=== PATIENT | female | born 1965 | race Caucasian/White ===

== ENCOUNTER → 2018-12-31 | Outpatient (CLI) | payer BC ==
--- NOTE | 2019-01-02 11:15 | MM ---
Reason for exam: screening (asymptomatic). Last mammogram was performed 8 years and 4 months ago. History: Patient is postmenopausal and is nulliparous. Physical Findings: A clinical breast exam by your physician is recommended on an annual basis and results should be correlated with mammographic findings. MG Screening Mammo w CAD Bilateral CC and MLO view(s) were taken. Prior study comparison: August 19, 2010, right breast mammogram dig work up. August 17, 2010, bilateral digital screening mammogram. The breast tissue is extremely dense which could obscure a lesion on mammography. No significant changes when compared with prior studies. ASSESSMENT: Benign, BI-RAD 2 RECOMMENDATION: Routine screening mammogram of both breasts in 1 year.
== END ==
LOC: RADMAMWWP 16:14
PROVIDERS: ATTEND Family Medicine
DX: Z12.31 Encounter for screening mammogram for malignant neoplasm of breast (principal)
CPT/HCPCS: 77067

== ENCOUNTER → 2019-01-03 | Outpatient (CLI) | payer BC ==
--- NOTE | 2019-01-03 15:49 | CT ---
EXAMINATION TYPE: CT abdomen wo con DATE OF EXAM: 01/03/2019 COMPARISON: 11/17/2014 INDICATION: epigastric to supraumbilical pain. DLP: 130.4 mGycm, Automated exposure control for dose reduction was used. CONTRAST: 0 mL of Isovue 300. Study performed without Oral Contrast TECHNIQUE: Axial images were obtained from above the diaphragm to the pubic rami in the axial plane a t 5 mm thick sections. Reconstructed images are reviewed on the computer in the coronal plane. FINDINGS: Limited CT sections are obtained the lung bases. The lung bases are clear. CT ABDOMEN: Liver: Normal Spleen: Normal Pancreas: Normal Adrenal glands: The adrenal glands are normal. Gallbladder: Normal Kidneys: No masses are evident. No hydronephrosis is present. No cysts are present. There are frances ral nonobstructing renal stones present. On the left this is in the mid medial kidney measuring 0.3 c m on the right facets at the superior pole medial aspect measuring 0.3 cm within the lateral midpole measuring 0.2 cm and in the posterior mid pole slightly inferior measuring 0.2 cm. Aorta: Vascular calcification is within the aorta. Inferior vena cava: Normal. Loops of bowel within the abdomen are normal. There are loops of bowel which are incompletely dis tended or lack oral contrast limiting their evaluation. IMPRESSIONS: 1. 1. Nonobstructing bilateral renal stones.
== END | disposition home or self-care (01) ==
LOC: RADCTMAIN 07:31
PROVIDERS: ATTEND Family Medicine
DX: N20.0 Calculus of kidney (principal); R19.07 Generalized intra-abdominal and pelvic swelling, mass and lump
CPT/HCPCS: 74150

== ENCOUNTER 2019-05-15 16:28 | Emergency (ER) | payer BC ==
[2019-05-15 16:36] VITALS: TEMP 98
--- NOTE | 2019-05-15 17:15 | XR ---
EXAMINATION TYPE: XR soft tissue neck DATE OF EXAM: 05/15/2019 COMPARISON: NONE HISTORY: Swallowed a toothpick. TECHNIQUE: 2 views FINDINGS: Epiglottis appears normal. Subglottic trachea appears normal. I see no sign of radiopaque f oreign body. Tonsils and adenoids appear normal. IMPRESSION: Negative exam. No evidence of a radiopaque foreign body. Wooden toothpick is probably not visible on plain x-ray.
--- NOTE | 2019-05-15 18:42 | CT ---
EXAMINATION TYPE: CT neck chest without con DATE OF EXAM: 05/15/2019 COMPARISON: None HISTORY: Toothpick stuck in throat. CT DLP: 400.3 mGycm Automated exposure control for dose reduction was used. FINDINGS: Multiple axial sections were obtained from the frontal sinuses to the diaphragm without contrast. IMPRESSION: THERE IS NO EVIDENCE OF MEDIASTINAL ADENOPATHY. THYROID GLAND IS SYMMETRIC. THERE IS SMALL AMOUNT OF AIR IN THE UPPER THORACIC ESOPHAGUS. I SEE NO EVIDENCE OF ESOPHAGEAL FOREIGN BODY. EPIGLOTTIS APPEARS NORMAL. THE LUNGS ARE CLEAR OF INFILTRATE. THERE IS NO EVIDENCE OF A PULMONARY MASS. THERE IS NO PLEURAL EFFU TONY. THERE ARE NO HILAR MASSES. HEART SIZE IS NORMAL. THERE IS NO PNEUMOTHORAX. THERE IS SOME SPONDY LOTIC CHANGES IN THE LOWER LOWER CERVICAL SPINE WITH DISC SPACE NARROWING AT C5-6 C6-7 AND SPUR FORMA TION. TONSILS AND ADENOIDS APPEAR NORMAL. THERE IS NO EVIDENCE OF PHARYNGEAL MASS. I SEE NO SOFT TISSUE AIR . IMPRESSION: NEGATIVE CT SCAN OF THE CERVICAL SOFT TISSUES. NEGATIVE CT SCAN OF THE CHEST. NO EVIDENCE OF A RADIOP AQUE FOREIGN BODY.
--- NOTE | 2019-05-15 18:55 | ED ---
General Adult HPI - General Chief complaint: ENT Stated complaint: Toothpick in throat Time Seen by Provider: 05/15/19 16:34 Source: patient Mode of arrival: ambulatory Limitations: no limitations - History of Present Illness Initial comments: 54-year-old female patient presented to the emergency department today for evaluation of sore throat with possible foreign body. Patient states that she was chewing on a toothpick when she accidentally swallowed one of the fragments. Patient states she can feel it stuck in her throat. States she is having di scomfort on the left side and to hurts to swallow. She describes the pain as an "irritation". She denies any shortness of breath or difficulty swallowing. Denies any fever or chills. Denies any chest or abdominal pain. Patient states she was at her primary care physician's office today, they did take an x-ray and visualized the foreign body on x-ray. - Related Data Home Medications Medication Instructions Recorded Confirmed Ergocalciferol [Vitamin D2 50,000 units PO RIVAS 11/18/14 05/15/19 (DRISDOL)] Gabapentin [Neurontin] 600 mg PO BID 05/15/19 05/15/19 Naproxen 500 mg PO BID 05/15/19 05/15/19 valACYclovir [Valtrex] 500 mg PO DAILY 05/15/19 05/15/19 Previous Rx's Medication Instructions Recorded Cephalexin [Keflex] 500 mg PO BID #20 cap 05/15/19 Allergies Allergy/AdvReac Type Severity Reaction Status Date / Time latex Allergy Mild Rash/Hives Verified 05/15/19 22:08 Review of Systems ROS Statement: Those systems with pertinent positive or pertinent negative responses have been documented in the HPI. ROS Other: All systems not noted in ROS Statement are negative. Past Medical History Past Medical History: Musculoskeletal Disorder Additional Past Medical History / Comment(s): BACK PROB, HERNIATED DISCS IN NECK AND LOWER BACK. History of Any Multi-Drug Resistant Organisms: None Reported Past Surgical History: Appendectomy, Orthopedic Surgery, Uterine Ablation Additional Past Surgical History / Comment(s): Two foot surgerys right (1992, 2011,2012) Past Anesthesia/Blood Transfusion Reactions: Postoperative Nausea & Vomiting (PONV) Additional Past Anesthesia/Blood Transfusion Reaction / Comment(s): Slight nausea Past Psychological History: Anxiety Smoking Status: Never smoker Past Alcohol Use History: Occasional Past Drug Use History: Marijuana - Past Family History Mother Additional Family Medical History / Comment(s): Throat and liver CA Father Family Medical History: Cancer Additional Family Medical History / Comment(s): Colon CA post 50 y/o General Exam Limitations: no limitations General appearance: alert, in no apparent distress, other (This is a well- developed, well-nourished adult female patient in no acute distress. Vital signs upon presentation are temperature 98.0F, pulse 85, respirations 18, blood pressure 121/84, pulse ox 99% on room air.) ENT exam: Present: normal exam, normal oropharynx, mucous membranes moist Respiratory exam: Present: normal lung sounds bilaterally. Absent: respiratory distress, wheezes, rales, rhonchi, stridor Cardiovascular Exam: Present: regular rate, normal rhythm, normal heart sounds. Absent: systolic murmur, diastolic murmur, rubs, gallop, clicks GI/Abdominal exam: Present: soft, normal bowel sounds. Absent: distended, tenderness, guarding, rebound, rigid Neurological exam: Present: alert, oriented X3, CN II-XII intact Psychiatric exam: Present: normal affect, normal mood Skin exam: Present: warm, dry, intact, normal color. Absent: rash Course Vital Signs 05/15/19 05/15/19 16:33 21:13 Temperature 98.0 F Pulse Rate 85 66 Respiratory 18 16 Rate Blood Pressure 121/84 127/65 O2 Sat by Pulse 99 98 Oximetry Medical Decision Making - Medical Decision Making 54-year-old female patient percents into to the emergency department today for evaluation of possible foreign body to the throat. Patient reports swelling of fragment of tooth pick which she feels is stuck in her throat due to irritation she feels a swelling on the left side. Physical examination is unremarkable. She has no abdominal tenderness. We did consult GI Dr. Frausto who states this wound be better managed by ENT. We paged ENT several times without response. Given no findings of foreign body on CT scan I did discuss likelihood of abrasion to the pharynx as a cause for her symptoms rather than retained foreign body. I did inform patient that I could not be absolutely certain of this wi thout direct visualization. I did offer to have patient remain in the ED while awaiting ENT call back. We also offered discharge to follow up in the morning with ENT specialist. Patient opted to go home. She is in no distress. Swallowing without difficulty and reporting minimal pain. V/S are stable. I offered medication to alleviate symptoms, patient declined. She is discharged with follow up information. She is instructed to follow up with her primary care physician for recheck in 1-2 days. Return parameters are discussed in detail. She verbalizes understanding and agrees with this plan. After discharge Dr. Smallwood, ENT specialist did call back. Patient case and all findings including CT results were discussed. He agrees that it is unlikely that the foreign body is retained. He also stated that even if retained there is low likelihood of complication of the small fragment of toothpick. He recommended antibiotics in the form of Keflex. He also recommended soft diet for the next 4- 5 days. I did call and discuss this plan with the patient. Antibiotics were sent to the pharmacy of her choice. We again discussed return parameters in detail and follow up with her physician. She verbalizes understanding and agreed with this plan. - Radiology Data Radiology results: report reviewed, image reviewed CT neck and chest without contrast were obtained. Report was reviewed in its entirety. Impression by Dr. Retana shows negative computed tomography scan of the cervical soft tissues. Negative computed tomography scan of the chest. No evidence of a radiopaque foreign body. Two-view x-ray of the soft tissue neck was obtained. Report was reviewed in its entirety. Impression by Dr. Crawford shows negative exam. No evidence of a radiopaque foreign body. Wood toothpick is probably not visible on plain x-ray. Disposition Clinical Impression: Foreign body in throat Disposition: HOME SELF-CARE Condition: Good Instructions (If sedation given, give patient instructions): Foreign Body in Pharynx (ED) Additional Instructions: Follow-up with ENT specialist tomorrow. If unable to get in and experiencing symptoms return to the emergency department for further evaluation. Return to the emergency department for any other new, worsening, or concerning symptoms. Prescriptions: Cephalexin [Keflex] 500 mg PO BID #20 cap Is patient prescribed a controlled substance at d/c from ED?: No Referrals: Ruth Serna DO [Primary Care Provider] - 1-2 days Jamal Smallwood MD [STAFF PHYSICIAN] - 1-2 days Forest Prado DO [Doctor of Osteopathic Medicine] - 1-2 days Kentrell Valerio MD [STAFF PHYSICIAN] - 1-2 days Time of Disposition: 22:39
[2019-05-15 21:15] VITALS: BP 127/65; PULSE 66; RESP 16
== END 2019-05-15 22:43 | disposition home or self-care (01) ==
LOC: EC 16:28
DX: T17.208A Unspecified foreign body in pharynx causing other injury, initial encounter (principal); Z79.899 Other long term (current) drug therapy; Z91.040 Latex allergy status
CPT/HCPCS: 70360; 70490; 71250; 99284

== ENCOUNTER → 2019-07-05 | Outpatient (CLI) | payer BC ==
--- NOTE | 2019-07-05 18:11 | XR ---
EXAMINATION TYPE: XR sternum DATE OF EXAM: 07/05/2019 COMPARISON: NONE HISTORY: Lump at the lower sternum TECHNIQUE: 2 views FINDINGS: Sternal segments have normal alignment. There is no evidence of retrosternal mass. I see no fracture. IMPRESSION: Normal sternum exam.
--- NOTE | 2019-07-05 18:12 | XR ---
EXAMINATION TYPE: XR ribs RT DATE OF EXAM: 07/05/2019 COMPARISON: NONE HISTORY: Lump on the sternum TECHNIQUE: 2 views FINDINGS: 2 views of the right ribs were obtained and show no pleural effusion or pneumothorax. Right ribs appear intact. Right lung is clear of infiltrate. IMPRESSION: Negative right rib exam.
--- NOTE | 2019-07-05 18:13 | XR ---
EXAMINATION TYPE: XR thoracic spine 2V DATE OF EXAM: 07/05/2019 COMPARISON: NONE HISTORY: Lump on the sternum TECHNIQUE: 3 views FINDINGS: Thoracic vertebra have fairly normal spacing and alignment. There is a very slight midthora cic dextroscoliosis. Posterior elements are intact. There is narrowing of C5-6 and C6-7 disc spaces. There is no thoracic paraspinal mass. Posterior elements are intact. IMPRESSION: Mild degenerative changes as above. Minimal dextroscoliosis. No fracture seen.
== END | disposition home or self-care (01) ==
LOC: RADXRMAIN 09:31
PROVIDERS: ATTEND Family Medicine
DX: M48.02 Spinal stenosis, cervical region (principal); M43.02 Spondylolysis, cervical region
CPT/HCPCS: 71120; 72070

== ENCOUNTER → 2020-12-07 | Outpatient (CLI) | payer BC | END | disposition home or self-care (01) | LOC: LABWHC1 16:46 | PROVIDERS: ATTEND Emergency Medicine | DX: Z20.822 Contact with and (suspected) exposure to COVID-19 (principal) | CPT/HCPCS: U0003; C9803; U0005 ==

== ENCOUNTER 2024-02-20 08:06 | Day surgery (SDC) | payer BC ==
[2024-02-20 08:38] VITALS: TEMP 97.6
[2024-02-20] MEDS: LIDOCAINE 1% (10MG/ML) FOR IV START INTRADERMA PRN (08:41)
[2024-02-20] MEDS: LACTATED RINGERS 1,000 ML IV SCH (08:42)
[2024-02-20] MEDS: IV FLUID CONTINUATION 1,000 ML IV ONE (08:42)
[2024-02-20] MEDS ORDERED: PROPOFOL 10 MG/ML 20 ML VIAL IV ONE (08:53)
[2024-02-20] MEDS ORDERED: LIDOCAINE 1% INJ 10MG/ML (20 ML MDV) ONE (08:53)
--- NOTE | 2024-02-20 09:20 | P.PCN ---
Date of Procedure: 02/20/24 Description of Procedure: PREOPERATIVE DIAGNOSIS: Gastroesophageal reflux disease. POSTOPERATIVE DIAGNOSIS: Acute gastric ulcer with bleeding Diaphragmatic hiatal hernia OPERATION: Esophagogastroduodenoscopy with biopsies along esophagus, antrum and duodenum SURGEON: Peggy Dickens MD ANESTHESIA: MAC. INDICATIONS: The patient is a 59-year-old female who presents with reflux disease. Benefits and risks of the procedure were described. Informed consent was obtained. DESCRIPTION: The patient was brought into the endoscopy suite and laid in the left lateral decubitus position. An Olympus gastroscope was passed along the posterior oropharynx down to the distal esophagus where the squamocolumnar junction was encountered at 40 cm from the incisors. The stomach was entered and no bile reflux was found. Additional findings are listed below. Biopsies with cold forceps were obtained of the antrum. The first through third portion of the duodenum was examined. Retroflexion of the scope confirmed Hill grade 2 lower esophageal valve. The squamocolumnar junction demonstrated LA grade B erosive esophagitis. The stomach was desufflated. The patient tolerated the procedure well. FINDINGS: Squamocolumnar junction 40 cm from the incisors. Diaphragmatic hiatus at 41 cm. Hiatal hernia, 1 cm Hill grade 2 lower esophageal valve. LA grade B erosive esophagitis. Biopsies obtained Biopsies obtained of the duodenum. Chronic gastritis with biopsies obtained. Acute gastric ulcers with bleeding along gastric cardia RECOMMENDATIONS: Omeprazole 40 mg daily for 2 weeks Carafate 1 g twice daily for 2 weeks
--- NOTE | 2024-02-20 09:21 | P.GSHP ---
History of Present Illness H&P Date: 02/20/24 CHIEF COMPLAINT: GERD and colon screen HISTORY OF PRESENT ILLNESS: The patient is a 59-year-old female who presents with gastroesophageal reflux disease and need for colon screen. Upper and lower endoscopy were offered for further evaluation and management. PAST MEDICAL HISTORY: Please see list. PAST SURGICAL HISTORY: Please see list. MEDICATIONS: Please see list. ALLERGIES: Please see list. SOCIAL HISTORY: No illicit drug use FAMILY HISTORY: No reports of Crohn disease or ulcerative colitis. REVIEW OF ORGAN SYSTEMS: CONSTITUTIONAL: No reports of fevers or chills. GI: Denies any blood in stools or constipation. PHYSICAL EXAM: VITAL SIGNS: Stable GENERAL: Well-developed pleasant in no acute distress. HEENT: No scleral icterus. Extraocular movements grossly intact. Moist buccal mucosa. NECK: Supple without lymphadenopathy. CHEST: Unlabored respirations. Equal bilateral excursions. CARDIOVASCULAR: Regular rate and rhythm. Distal 2+ pulses. ABDOMEN: Soft, nondistended. MUSCULOSKELETAL: No clubbing, cyanosis, or edema. ASSESSMENT: 1. Gastroesophageal reflux disease 2. Colon screen. PLAN: 1. Recommend proceeding with an upper and lower endoscopy Past Medical History Past Medical History: GERD/Reflux, Musculoskeletal Disorder Additional Past Medical History / Comment(s): BACK PROB, HERNIATED DISCS IN NECK AND LOWER BACK. burning to stomach History of Any Multi-Drug Resistant Organisms: None Reported Past Surgical History: Appendectomy, Orthopedic Surgery, Uterine Ablation Additional Past Surgical History / Comment(s): Two foot surgerys right (1992, 2011,2012) Past Anesthesia/Blood Transfusion Reactions: Postoperative Nausea & Vomiting (PONV) Additional Past Anesthesia/Blood Transfusion Reaction / Comment(s): Slight nausea Smoking Status: Never smoker - Past Family History Mother Additional Family Medical History / Comment(s): Throat and liver CA Father Family Medical History: Cancer Additional Family Medical History / Comment(s): Colon CA post 50 y/o Medications and Allergies Home Medications Medication Instructions Recorded Confirmed Type Ergocalciferol [Vitamin D2 50,000 units PO RIVAS 11/18/02/20/24 History (DRISDOL)] Allergies Allergy/AdvReac Type Severity Reaction Status Date / Time latex Allergy Mild Rash/Hives Verified 02/20/24 08:39 Surgical - Exam Vital Signs Temp Pulse Resp BP Pulse Ox 97.6 F 85 16 138/72 96 02/20/24 08:37 02/20/24 08:37 02/20/24 08:37 02/20/24 08:37 02/20/24 08:37
--- NOTE | 2024-02-20 09:40 | P.PCN ---
Date of Procedure: 02/20/24 Description of Procedure: PREOPERATIVE DIAGNOSIS: Colonoscopy screening POSTOPERATIVE DIAGNOSIS: Tubular adenoma sigmoid colon Sigmoid diverticulosis Internal and external hemorrhoids, grade 2 OPERATION: Colonoscopy to the ileocecal valve and appendiceal orifice, cecum Colonoscopy with cold forceps biopsy SURGEON: Peggy Dickens MD. ANESTHESIA: MAC. INDICATIONS: The patient is an 64-year-old male who presents family history of malignant colon polyps and personal history of colon polyps. Last colonoscopy 5 years. Benefits and risks were described and informed consent was obtained. DESCRIPTION OF PROCEDURE: The patient had undergone Sutab prep. The patient had been brought into the op erating room and laid in the left lateral decubitus position. After adequate intravenous sedation, the rectum was examined with 2% lidocaine jelly. The prostate was unremarkable. External hemorrhoids were encountered. The rectal tone was within normal limits. No lesions were palpated in the rectal vault. An Olympus colonoscope was advanced until the cecum, ileocecal valve and appendiceal orifice were clearly viewed. The prep was fair. Sigmoid diverticulosis was encountered. Colonic polyps were found and removed. No evidence of focal colitis was found. Retroflexion of the scope demonstrated grade 2 internal hemorrhoids without active bleeding or inflammation. The colon was desufflated. The patient had tolerated the procedure well. Withdrawal time was over 6 minutes. FINDINGS: Aronchick preparation quality scale 1+ (1-5) Internal hemorrhoids, grade 2 External hemorrhoids, grade 2 No arteriovenous malformations. Sigmoid diverticulosis Removal of 1 polyps: - Cold forceps biopsy at 20 cm from the anal verge, 4 mm polyp. No focal colitis. RECOMMENDATIONS: Repeat colonoscopy 3 years, 2026 Plan - Discharge Summary Discharge Rx Participant: No New Discharge Prescriptions: New Sucralfate [Carafate] 1 gm PO BID #30 tablet Pantoprazole [Protonix] 40 mg PO DAILY #14 tab Continue Ergocalciferol [Vitamin D2 (DRISDOL)] 50,000 units PO RIVAS Discharge Medication List Ergocalciferol [Vitamin D2 (DRISDOL)] 50,000 units PO RIVAS 11/18/14 [History] Pantoprazole [Protonix] 40 mg PO DAILY #14 tab 02/20/24 [Rx] Sucralfate [Carafate] 1 gm PO BID #30 tablet 02/20/24 [Rx] Follow up Appointment(s)/Referral(s): Peggy Dickens MD [STAFF PHYSICIAN] - 03/25/24 11:15 am Patient Instructions/Handouts: *Surgery [facility] - (Anesthesia) Discharge Instructions Outpatient Surgery, Diverticulosis (DC), Diverticulosis Diet (GEN), Colonoscopy (DC), Upper Endoscopy (DC), Colorectal Polyps (GEN), Diverticulitis Diet (GEN), Diverticulosis (ED), Diet for Stomach Ulcers and Gastritis (ED) Activity/Diet/Wound Care/Special Instructions: Repeat colonoscopy 3 years, 2026 Discharge Disposition: HOME SELF-CARE
[2024-02-20 09:56] VITALS: BP 130/69; PULSE 79; RESP 18
== END 2024-02-20 10:29 | disposition home or self-care (01) ==
LOC: ORWHC2ENDO 08:06
PROVIDERS: ATTEND Surgery Plastic and Reconstructive Surgery
DX: Z12.11 Encounter for screening for malignant neoplasm of colon (principal); D12.5 Benign neoplasm of sigmoid colon; K64.1 Second degree hemorrhoids; K64.4 Residual hemorrhoidal skin tags; K25.3 Acute gastric ulcer without hemorrhage or perforation; K21.00 Gastro-esophageal reflux disease with esophagitis, without bleeding; K29.80 Duodenitis without bleeding; K31.9 Disease of stomach and duodenum, unspecified; K44.9 Diaphragmatic hernia without obstruction or gangrene; K25.4 Chronic or unspecified gastric ulcer with hemorrhage; K57.30 Diverticulosis of large intestine without perforation or abscess without bleeding; Z80.0 Family history of malignant neoplasm of digestive organs; Z91.040 Latex allergy status; Z90.49 Acquired absence of other specified parts of digestive tract; Z79.899 Other long term (current) drug therapy
CPT/HCPCS: 88305; 45380; 43239; J2001; J2704

== ENCOUNTER 2024-03-04 19:48 | Emergency (ER) | payer BC ==
[2024-03-04 19:54] VITALS: TEMP 98.2
--- NOTE | 2024-03-04 21:08 | XR ---
EXAMINATION TYPE: XR KUB DATE OF EXAM: 03/04/2024 9:01 PM CLINICAL INDICATION:Female, 59 years old with history of abdominal pain; [facility] COMPARISON: None. TECHNIQUE: Two views of the abdomen were obtained. FINDINGS: The bowel gas pattern is nonspecific without dilated loops of small or large bowel. There i s no evidence for organomegaly or pneumoperitoneum. The osseous structures are intact. No abnormal calcifications are present. Fecal material and gas are demonstrated throughout the colon and rectum. IMPRESSION: Nonspecific bowel gas pattern without radiographic evidence for acute process.
[2024-03-04 21:29] LABS: Basophils # (A) 0.1 k/uL (0-0.2); Basophils % (A) 1 %; Eosinophils # (A) 0.2 k/uL (0-0.7); Eosinophils % (A) 2 %; HCT 45.3 % (34.0-46.0); HGB 14.9 gm/dL (11.4-16.0); Lymphocytes # (A) 3.2 k/uL (1.0-4.8); Lymphocytes % (A) 25 %; MCH 30.4 pg (25.0-35.0); MCV 92.1 fL (80.0-100.0); Mean Platelet Volume 8.9; Monocytes # (A) 0.5 k/uL (0-1.0); Monocytes % (A) 4 %; Neutrophils # (A) 8.6 k/uL (1.3-7.7); Neutrophils % (A) 67 %; Platelet Count 266 k/uL (150-450); RBC 4.91 m/uL (3.80-5.40); RDW 12.4 % (11.5-15.5); WBC 12.8 k/uL (3.8-10.6)
[2024-03-04] MEDS: SODIUM CHLORIDE 0.9% 1,000 ML BAG IV STA (21:46)
[2024-03-04 21:47] LABS: ALT 21 U/L (4-34); AST 31 U/L (14-36); African American GFR (CKD) >90 (>60 ml/min/1.73 sqM); Albumin 4.9 g/dL (3.5-5.0); Alkaline Phosphatase 79 U/L (38-126); Anion Gap 9 mmol/L; Blood Urea Nitrogen 16 mg/dL (7-17); Calcium 10.1 mg/dL (8.4-10.2); Carbon Dioxide 24 mmol/L (22-30); Chloride 109 mmol/L (98-107); Glucose 102 mg/dL (74-99); Non-African American GFR(CKD) 87 (>60 ml/min/1.73 sqM); Potassium 3.9 mmol/L (3.5-5.1); Sodium 142 mmol/L (137-145); Total Bilirubin 0.7 mg/dL (0.2-1.3); Total Protein 7.6 g/dL (6.3-8.2)
[2024-03-04] MEDS: KETOROLAC 15 MG/ML 1 ML VIAL IVP STA (21:47)
[2024-03-04] MEDS: HYDROmorphone 1 MG/ML 1 ML SYRINGE IVP STA (21:49)
[2024-03-04 22:15] LABS: Appearance,Urine Clear (Clear); Bilirubin,Urine Negative (Negative); Blood,Urine Moderate (Negative); Color,Urine Colorless; Glucose,Urine (UA) Negative (Negative); Hyaline Casts,Urine 1 /lpf (0-2); Ketones,Urine Negative (Negative); Leukocyte Esterase,Urine Negative (Negative); Nitrite,Urine Negative (Negative); Protein,Urine Negative (Negative); RBC,Urine 4 /hpf (0-5); Specific Gravity,Urine 1.006 (1.001-1.035); Squamous Epithelial Cell,Urine 1 /hpf (0-4); Urobilinogen,Urine <2.0 mg/dL (<2.0); WBC,Urine 2 /hpf (0-5)
[2024-03-04] MEDS: ONDANSETRON 4 MG/2 ML VIAL IVP STA (23:35)
--- NOTE | 2024-03-05 00:41 | CT ---
EXAM: CT Abdomen and Pelvis Without Intravenous Contrast CLINICAL HISTORY: ITS.REASON CT Reason: r/o L stone TECHNIQUE: Axial computed tomography images of the abdomen and pelvis without intravenous contrast. CTDI is 5.7 mGy and DLP is 331.9 mGy-cm. This CT exam was performed using one or more of the following dose reduction techniques: automated exposure control, adjustment of the mA and/or kV according to patient size, and/or use of iterative reconstruction technique. COMPARISON: CT abdomen and pelvis 01/03/2019. FINDINGS: Lung bases: Unremarkable. No mass. No consolidation. ABDOMEN: Liver: Unremarkable. Gallbladder and bile ducts: Unremarkable. No calcified stones. No ductal dilation. Pancreas: Unremarkable. No ductal dilation. Spleen: Unremarkable. No splenomegaly. Adrenals: Unremarkable. No mass. Kidneys and ureters: Bilateral nonobstructing renal stones bone measuring approximately 1-to 2 mm in size. Stomach and bowel: Unremarkable. No obstruction. No mucosal thickening. PELVIS: Appendix: Appendectomy. Bladder: Nonobstructing 3 mm stone in the urinary bladder, recently passed from the left-sided collecting system. Reproductive: Unremarkable as visualized. ABDOMEN and PELVIS: Intraperitoneal space: Unremarkable. No free air. No significant fluid collection. Bones/joints: Degenerative changes of the spine. Soft tissues: Unremarkable. Vasculature: Atherosclerotic changes of the aorta. No abdominal aortic aneurysm. Lymph nodes: Unremarkable. No enlarged lymph nodes. IMPRESSION: 1. Bilateral nonobstructing renal stones bone measuring approximately 1- to 2 mm in size. 2. Nonobstructing 3 mm stone in the urinary bladder, recently passed from the left-sided collecting system.
--- NOTE | 2024-03-05 01:49 | ED ---
Abdominal Pain HPI - General Chief Complaint: Abdominal Pain Stated Complaint: poss UTI Time Seen by Provider: 03/04/24 21:12 Source: patient Mode of arrival: ambulatory Limitations: no limitations - History of Present Illness Initial Comments: 59-year-old female presenting to the ED with a chief complaint of abdominal pain. Patient states around 6 PM tonight started to experience pain in her left lower abdomen and pain in her left flank. Also notes onset of difficulties and burning with some urination. Denies blood in the urine. Denies fever or chills. No chest pain or shortness of breath. No other complaints at this time. - Related Data Home Medications Medication Instructions Recorded Confirmed Ergocalciferol [Vitamin D2 50,000 units PO RIVAS 11/18/14 02/20/24 (DRISDOL)] Previous Rx's Medication Instructions Recorded Pantoprazole [Protonix] 40 mg PO DAILY #14 tab 02/20/24 Sucralfate [Carafate] 1 gm PO BID #30 tablet 02/20/24 HYDROcodone/APAP 5-325MG [[place] 5] 1 each PO Q6HR PRN #12 tab 03/05/24 Ondansetron Odt [Zofran Odt] 4 mg PO Q8HR PRN #10 tab 03/05/24 Tamsulosin [Flomax] 0.4 mg PO DAILY #7 cap 03/05/24 Allergies Allergy/AdvReac Type Severity Reaction Status Date / Time latex Allergy Mild Rash/Hives Verified 03/04/24 19:55 Review of Systems ROS Statement: Those systems with pertinent positive or pertinent negative responses have been documented in the HPI. ROS Other: All systems not noted in ROS Statement are negative. Past Medical History Past Medical History: GERD/Reflux, Musculoskeletal Disorder Additional Past Medical History / Comment(s): BACK PROB, HERNIATED DISCS IN NECK AND LOWER BACK. burning to stomach History of Any Multi-Drug Resistant Organisms: None Reported Past Surgical History: Appendectomy, Orthopedic Surgery, Uterine Ablation Additional Past Surgical History / Comment(s): Two foot surgerys right (1992, 2011,2012) Past Anesthesia/Blood Transfusion Reactions: Postoperative Nausea & Vomiting (PONV) Additional Past Anesthesia/Blood Transfusion Reaction / Comment(s): Slight nausea Past Psychological History: Anxiety Smoking Status: Never smoker Past Alcohol Use History: None Reported Past Drug Use History: None Reported - Past Family History Mother Additional Family Medical History / Comment(s): Throat and liver CA Father Family Medical History: Cancer Additional Family Medical History / Comment(s): Colon CA post 50 y/o General Exam Limitations: no limitations General appearance: alert, in no apparent distress Eye exam: Present: normal appearance Neck exam: Present: normal inspection Respiratory exam: Present: normal lung sounds bilaterally Cardiovascular Exam: Present: regular rate GI/Abdominal exam: Present: soft (Left-sided abdominal tenderness to palpation. No rebound guarding or rigidity. Left CVA tenderness to percussion.) Neurological exam: Present: alert, oriented X3 Skin exam: Present: warm, dry Course Vital Signs 03/04/24 03/04/24 03/04/24 19:52 21:48 23:10 Temperature 98.2 F Pulse Rate 87 67 68 Respiratory 20 18 18 Rate Blood Pressure 135/79 149/94 120/82 O2 Sat by Pulse 100 98 98 Oximetry 03/05/24 01:53 Temperature Pulse Rate 76 Respiratory 17 Rate Blood Pressure 133/80 O2 Sat by Pulse 95 Oximetry Medical Decision Making - Medical Decision Making Was pt. sent in by a medical professional or institution (, PA, BEHAVIORAL MEDICAL DIRECTOR, urgent care, hospital, or intermediate...) When possible be specific @ -No Did you speak to anyone other than the patient for history (EMS, parent, family, police, friend...)? What history was obtained from this source @ -No Did you review nursing and triage notes (agree or disagree)? Why? @ -I reviewed and agree with nursing and triage notes Were old charts reviewed (outside hosp., previous admission, EMS record, old EKG, old radiological studies, urgent care reports/EKG's, intermediate records)? Report findings @ -No old charts were reviewed Differential Diagnosis (chest pain, altered mental status, abdominal pain women, abdominal pain men, vaginal bleeding, weakness, fever, dyspnea, syncope, headache, dizziness, GI bleed, back pain, seizure, CVA, palpatations, mental health, musculoskeletal)? @ -Differential Abdominal Pain Women: Appendicitis, Cholecystitis, diverticulosis, ischemic bowel, pancreatitis, hepatitis, UTI, gastroenteritis, AAA, incarcerated hernia, bowel obstruction, constipation, inflammatory bowel, hepatitis, peptic ulcer disease, splenic infarction, perforated viscus, vulvitis, ovarian torsion, PID, kidney stone, placenta abruption, this is not meant to be an all-inclusive list EKG interpreted by me (3pts min.). @ -None X-rays interpreted by me (1pt min.). @ -KUB interpreted me which revealed no evidence of acute finding CT interpreted by me (1pt min.). @ -CT interpreted by me which shows bilateral nonobstructing renal stones however nonobstructing 3 mm stone in the bladder which was passed from the left collecting system. U/S interpreted by me (1pt. min.). @ -None done What testing was considered but not performed or refused? (CT, X-rays, U/S, labs)? Why? @ -None What meds were considered but not given or refused? Why? @ -None Did you discuss the management of the patient with other professionals (professionals i.e. , PA, BEHAVIORAL MEDICAL DIRECTOR, lab, RT, psych nurse, social services director, technical applications scientist, teacher, national service officer, rehabilitation case coordinator)? Give summary @ -No Was smoking cessation discussed for >3mins.? @ -No Was critical care preformed (if so, how long)? @ -No Were there social determinants of health that impacted care today? How? (Homeles sness, low income, unemployed, alcoholism, drug addiction, transportation, low edu. Level, literacy, decrease access to med. care, half-way, rehab)? @ -No Was there de-escalation of care discussed even if they declined (Discuss DNR or withdrawal of care, Hospice)? DNR status @ -No What co-morbidities impacted this encounter? (DM, HTN, Smoking, COPD, CAD, Cancer, CVA, ARF, Chemo, Hep., AIDS, mental health diagnosis, sleep apnea, morbid obesity)? @ -None Was patient admitted / discharged? Hospital course, mention meds given and route, prescriptions, significant lab abnormalities, going to OR and other pertinent info. @ -Discharge 59-year-old female presented to the ED with complaints of acute onset left abdominal and left flank pain with difficulties urinating. Laboratory studies reviewed. CBC shows an elevated white blood cell count 12.8. Chemistry panel unremarkable. Urine shows no evidence of infection however there is moderate blood. CT was performed which did show a nonobstructing renal stone recently passed within the urinary bladder. Discharged home with urinary strainer and prescriptions for Flomax, Zofran, [place] and referral to see urology. Discharged home in stable condition. Discussed return precautions with patient who verbalized agreement. Undiagnosed new problem with uncertain prognosis? @ -No Drug Therapy requiring intensive monitoring for toxicity (Heparin, Nitro, Insulin, Cardizem)? @ -No Were any procedures done? @ -No Diagnosis/symptom? @ -Kidney stone Acute, or Chronic, or Acute on Chronic? @ -Acute Uncomplicated (without systemic symptoms) or Complicated (systemic symptoms)? @ -Uncomplicated Side effects of treatment? @ -No Exacerbation, Progression, or Severe Exacerbation? @ -No Poses a threat to life or bodily function? How? (Chest pain, [place], NH, pneumonia, PE, COPD, DKA, ARF, appy, cholecystitis, CVA, Diverticulitis, Homicidal, S uicidal, threat to staff... and all critical care pts) @ -No - Lab Data Result diagrams: 03/04/24 21:18 03/04/24 21:18 Lab Results 03/04/24 03/04/24 03/04/24 Range/Units 21:15 21:18 21:18 WBC 12.8 H (3.8-10.6) k/uL RBC 4.91 (3.80-5.40) m/uL Hgb 14.9 (11.4-16.0) gm/dL Hct 45.3 (34.0-46.0) % MCV 92.1 (80.0-100.0) fL MCH 30.4 (25.0-35.0) pg MCHC 33.0 (31.0-37.0) g/dL RDW 12.4 (11.5-15.5) % Plt Count 266 (150-450) k/uL MPV 8.9 Neutrophils % 67 % Lymphocytes % 25 % Monocytes % 4 % Eosinophils % 2 % Basophils % 1 % Neutrophils # 8.6 H (1.3-7.7) k/uL Lymphocytes # 3.2 (1.0-4.8) k/uL Monocytes # 0.5 (0-1.0) k/uL Eosinophils # 0.2 (0-0.7) k/uL Basophils # 0.1 (0-0.2) k/uL Sodium 142 (137-145) mmol/L Potassium 3.9 (3.5-5.1) mmol/L Chloride 109 H (98-107) mmol/L Carbon Dioxide 24 (22-30) mmol/L Anion Gap 9 mmol/L BUN 16 (7-17) mg/dL Creatinine 0.75 (0.52-1.04) mg/dL Est GFR (CKD-EPI)AfAm >90 (>60 ml/min/1.73 sqM) Est GFR (CKD-EPI)NonAf 87 (>60 ml/min/1.73 sqM) Glucose 102 H (74-99) mg/dL Calcium 10.1 (8.4-10.2) mg/dL Total Bilirubin 0.7 (0.2-1.3) mg/dL AST 31 (14-36) U/L ALT 21 (4-34) U/L Alkaline Phosphatase 79 (38-126) U/L Total Protein 7.6 (6.3-8.2) g/dL Albumin 4.9 (3.5-5.0) g/dL Urine Color Colorless Urine Appearance Clear (Clear) Urine pH 7.0 (5.0-8.0) Ur Specific [place] 1.006 (1.001-1.035) Urine Protein Negative (Negative) Urine Glucose (UA) Negative (Negative) Urine Ketones Negative (Negative) Urine Blood Moderate H (Negative) Urine Nitrite Negative (Negative) Urine Bilirubin Negative (Negative) Urine Urobilinogen <2.0 (<2.0) mg/dL Ur Leukocyte Esterase Negative (Negative) Urine RBC 4 (0-5) /hpf Urine WBC 2 (0-5) /hpf Ur Squamous Epith Cells 1 (0-4) /hpf Hyaline Casts 1 (0-2) /lpf Disposition Clinical Impression: Kidney stone Disposition: HOME SELF-CARE Condition: Good Instructions (If sedation given, give patient instructions): Kidney Stones (ED), How to Strain Your Urine (ED) Additional Instructions: Please return to the Emergency Department if symptoms worsen or any other concerns. Please follow-up with urology. Prescriptions: Tamsulosin [Flomax] 0.4 mg PO DAILY #7 cap HYDROcodone/APAP 5-325MG [[place] 5] 1 each PO Q6HR PRN #12 tab PRN Reason: Pain Ondansetron Odt [Zofran Odt] 4 mg PO Q8HR PRN #10 tab PRN Reason: Nausea Is patient prescribed a controlled substance at d/c from ED?: No Referrals: Ruth Serna DO [Primary Care Provider] - 1-2 days Arturo Briscoe MD [STAFF PHYSICIAN] - 1-2 days Time of Disposition: 01:49
[2024-03-05] MEDS: ACET/COD 300 MG/30 MG STARTER PACK 6 TAB BTL PO STA (01:50)
[2024-03-05] MEDS: ONDANSETRON 4 MG ODT STARTER PACK 2 TAB BTL PO STA (01:51)
[2024-03-05] MEDS: METOCLOPRAMIDE 5 MG/ML 2 ML VIAL IVP STA (01:51)
[2024-03-05 01:54] VITALS: BP 133/80; PULSE 76; RESP 17
[2024-03-05] MEDS: HYDROmorphone 0.5 MG/0.5 ML SYRINGE IVP STA (01:55)
== END 2024-03-05 02:29 | disposition home or self-care (01) ==
LOC: EC 19:48
DX: N20.0 Calculus of kidney (principal); Z91.040 Latex allergy status
CPT/HCPCS: 36415; 80053; 85025; 81001; 74018; 74176; 99284; 96374; 96375 ×3; 96376; 96361 ×2; J2405; J1170; J1885

== ENCOUNTER → 2024-04-08 | Outpatient (CLI) | payer BC ==
--- NOTE | 2024-04-08 08:25 | US ---
EXAMINATION TYPE: US gallbladder DATE OF EXAM: 04/08/2024 COMPARISON: NONE CLINICAL INDICATION: Female, 59 years old with history of R10.11 RUQ PAIN; RUQ pain TECHNIQUE: Multiple sonographic images of the right upper quadrant are obtained. FINDINGS: EXAM MEASUREMENTS: Liver Length: 15.1 cm Gallbladder Wall: .1 cm CBD: .6 cm Right Kidney: 8.5 x 4.0 x 4.1 cm DIRECTOR COMPENSATION NOTES: Pancreas: Tail obscured by overlying bowel gas Liver: wnl Gallbladder: No stones seen Evidence for sonographic Gonsalez's sign: No CBD: wnl Right Kidney: wnl IMPRESSION: Unremarkable study
== END | disposition home or self-care (01) ==
LOC: RADUSWWP 07:40
PROVIDERS: ATTEND Surgery Plastic and Reconstructive Surgery
DX: R10.11 Right upper quadrant pain (principal)
CPT/HCPCS: 76705

== ENCOUNTER → 2024-04-16 | Outpatient (CLI) | payer BC ==
--- NOTE | 2024-04-16 09:32 | NM ---
EXAMINATION TYPE: NM hepatobiliary w EF DATE OF EXAM: 04/16/2024 COMPARISON: NONE CLINICAL INDICATION: Female, 59 years old with history of R10.11 RUQ PAIN; TECHNIQUE: After the intravenous administration of 4.4 mCi Tc 99m Mebrofenin hepatobiliary scintigrap hy is performed. Immediate images post injection. FINDINGS: There is satisfactory initial accumulation of tracer by the liver. The gallbladder is visualized wit hin 15 minutes. The small bowel activity is noted within 60 minutes. At one hour 8 ounces of oral e nsure plus is given to mimic CCK and gallbladder ejection fraction is calculated at 41 %, which is in the low-normal range.. Therefore there is no scintigraphic evidence of cystic or common bile duct o bstruction to suggest acute cholecystitis or gallbladder dyskinesia. IMPRESSION: Estimated ejection fraction is 41% which is in the low normal range.
== END | disposition home or self-care (01) ==
LOC: RADNMMAIN 06:45
PROVIDERS: ATTEND Surgery Plastic and Reconstructive Surgery
DX: R10.11 Right upper quadrant pain (principal)
CPT/HCPCS: 78226; A9537

== ENCOUNTER 2024-08-22 05:40 | Day surgery (SDC) | payer BC ==
[2024-08-13 15:13] VITALS: BMI 21.6
[2024-08-22] MEDS: IV FLUID CONTINUATION 1,000 ML IV ONE ×2 (06:12→09:54)
--- NOTE | 2024-08-22 06:20 | P.GSHP ---
History of Present Illness H&P Date: 08/22/24 CHIEF COMPLAINT: Ventral hernia. HISTORY OF PRESENT ILLNESS: The patient is a 59-year-old female who presents with swelling along the abdomen for over 6 month with pain and tenderness. Findings were consistent with ventral hernia. She reports change in bowel habits as a result. Now she presents for further evaluation and management. PAST MEDICAL HISTORY: Please see list and reviewed. PAST SURGICAL HISTORY: Please see list and reviewed. MEDICATIONS: Please see list and reviewed. ALLERGIES: Please see list and reviewed. SOCIAL HISTORY: Please see list and reviewed. FAMILY HISTORY: No reports of Crohn disease or ulcerative colitis. REVIEW OF ORGAN SYSTEMS: CONSTITUTIONAL: No reports of fevers or chills. Has morbid obesity.. GI: Denies any blood in stools or constipation. History of ulcers HEENT: Denies any trouble with vision, hearing or nosebleeds. No difficulty swallowing. LYMPHATIC: The patient denies any lumps and bumps around the neck. ENDOCRINE: Denies any thyroid disorders. Denies any blood sugar glucose intolerance. RESPIRATORY: Denies pneumonia. Denies any troubles with breathing or dyspnea on exertion. CARDIOVASCULAR: Denies any chest pain, palpitations, or recent heart attacks. GENITOURINARY: Denies any blood in urine or increased urinary frequency. MUSCULOSKELETAL: Denies any back pain, stiffness, joint arthritis. NEUROLOGIC: Denies any numbness or tingling along the distal extremities. No seizure disorders or headaches. PSYCHIATRIC: Has depression. No suidical ideation. HEMATOLOGIC: Denies any abnormal bleeding or bruising. BREASTS: Denies any breast lumps, pain or nipple discharge. PHYSICAL EXAM: VITAL SIGNS: Stable GENERAL: Well-developed pleasant female in no acute distress. HEENT: No scleral icterus. Extraocular movements grossly intact. Moist buccal mucosa. NECK: Supple without lymphadenopathy. CHEST: Unlabored respirations. Equal bilateral excursions. CARDIOVASCULAR: Regular rate and rhythm. Distal 2+ pulses. ABDOMEN: Soft, nondistended. Tender along the abdomen. Protuberant. MUSCULOSKELETAL: No clubbing, cyanosis, or edema. SKIN: Well perfused. PSYCH: Alert and oriented. No focal or lateralizing signs. LABS: February 2024, WBC elevated over 12,000 EKG: Borderline with 1st degree AV block, March 2024 ASSESSMENT: 1. Ventral hernia. 2. History of ulcers PLAN: 1. Recommend proceeding with robotic ventral hernia repair with mesh. 2. Benefits and risks of surgical intervention was discussed including possibility of open technique. 3. DVT prophylaxis. 4. Antibiotic prophylaxis. 5. Repeat CBC and CMP 6. Avoid NSAIDS for history of ulcers 7. Non-narcotic pain managment reviewed. 8. Tobacco cessation and counseling performed. Past Medical History Past Medical History: GERD/Reflux, Musculoskeletal Disorder Additional Past Medical History / Comment(s): BACK PROB, HERNIATED DISCS IN NECK AND LOWER BACK. VENTRAL HERNIA History of Any Multi-Drug Resistant Organisms: None Reported Past Surgical History: Appendectomy, Orthopedic Surgery, Uterine Ablation Additional Past Surgical History / Comment(s): THREE foot surgerys right (1992, 2011,2012), COLONOSCOPY Past Anesthesia/Blood Transfusion Reactions: Postoperative Nausea & Vomiting (PONV) Additional Past Anesthesia/Blood Transfusion Reaction / Comment(s): Slight nausea Smoking Status: Never smoker - Past Family History Mother Family Medical History: Cancer Additional Family Medical History / Comment(s): Throat and liver CA Father Family Medical History: Cancer Additional Family Medical History / Comment(s): Colon CA post 50 y/o Medications and Allergies Home Medications Medication Instructions Recorded Confirmed Type Ergocalciferol [Vitamin D2 50,000 units PO RIVAS 11/18/02/20/24 History (DRISDOL)] Pantoprazole [Protonix] 40 mg PO DAILY #14 tab 02/20/24 Rx Sucralfate [Carafate] 1 gm PO BID #30 tablet 02/20/24 Rx HYDROcodone/APAP 5-325MG [[place] 5] 1 each PO Q6HR PRN #12 tab 03/05/24 Rx Ondansetron Odt [Zofran Odt] 4 mg PO Q8HR PRN #10 tab 03/05/24 Rx Tamsulosin [Flomax] 0.4 mg PO DAILY #7 cap 03/05/24 Rx Allergies Allergy/AdvReac Type Severity Reaction Status Date / Time latex Allergy Mild Rash/Hives Verified 08/13/24 15:04 hydrocodone Allergy Itching Verified 08/13/24 15:05 pramipexole AdvReac Nausea & Verified 08/13/24 15:05 Vomiting
[2024-08-22] MEDS: ACETAMINOPHEN TAB 500 MG TAB PO PRN (06:51)
[2024-08-22] MEDS: HEPARIN SODIUM,PORCINE 5,000 UNIT/ML 1 ML VIAL SQ PRN (06:52)
[2024-08-22] MEDS: MELOXICAM 7.5 MG TAB PO PRN (06:52)
[2024-08-22] MEDS: ONDANSETRON 4 MG/2 ML VIAL IVP PRN (06:53)
[2024-08-22] MEDS ORDERED: MIDAZOLAM 2 MG/2 ML VIAL IV PRN (07:00)
[2024-08-22] MEDS: MIDAZOLAM 2 MG/2 ML VIAL IVP ONE (07:06)
[2024-08-22] MEDS: fentaNYL (PF) 50 MCG/1 ML VIAL IVP ONE (07:06)
[2024-08-22] MEDS: DEXAMETHASONE SOD PHOSPHATE 4 MG/ML 1 ML VIAL IV ONE (07:06)
[2024-08-22] MEDS: LACTATED RINGERS 1,000 ML IV SCH (07:29)
[2024-08-22] MEDS ORDERED: ROCURONIUM 10 MG/ML (5 ML VIAL) IV ONE (07:30)
[2024-08-22] MEDS ORDERED: BUPIVACAIN-EPI 0.5%-1:200,000 30 ML VIAL ONE (07:30)
[2024-08-22] MEDS ORDERED: SODIUM CHLORIDE 0.9% (PF) 10 ML VIAL ONE (07:30)
[2024-08-22] MEDS ORDERED: PHENYLEPHRINE-0.9% NACL SYG 1,000 MCG/10 ML SYRINGE ONE (07:30)
[2024-08-22] MEDS ORDERED: WATER FOR INJECTION, STERILE 10 ML VIAL IV ONE (07:30)
[2024-08-22] MEDS ORDERED: GLYCOPYRROLATE 0.2 MG/ML 2 ML VIAL ONE (07:30)
[2024-08-22] MEDS ORDERED: SUCCINYLCHOLINE CHLORIDE 200 MG/10 ML VIAL IV ONE (07:30)
[2024-08-22] MEDS ORDERED: NEOSTIGMINE 1 MG/ML 10 ML VIAL ONE (07:30)
[2024-08-22] MEDS ORDERED: LIDOCAINE 1% INJ 10MG/ML (20 ML MDV) ONE (07:30)
[2024-08-22] MEDS ORDERED: fentaNYL (PF) 50 MCG/ML 2 ML AMP ONE (07:30)
[2024-08-22] MEDS ORDERED: PROPOFOL 10 MG/ML 20 ML VIAL IV ONE (07:30)
[2024-08-22] MEDS ORDERED: ePHEDrine 50 MG/ML 1 ML VIAL ONE (07:30)
[2024-08-22 07:32] LABS: Basophils # (A) 0.1 k/uL (0-0.2); Basophils % (A) 1 %; Eosinophils # (A) 0.2 k/uL (0-0.7); Eosinophils % (A) 3 %; HCT 42.7 % (34.0-46.0); HGB 14.5 gm/dL (11.4-16.0); Lymphocytes # (A) 1.9 k/uL (1.0-4.8); Lymphocytes % (A) 24 %; MCH 30.6 pg (25.0-35.0); MCV 89.9 fL (80.0-100.0); Mean Platelet Volume 8.8; Monocytes # (A) 0.4 k/uL (0-1.0); Monocytes % (A) 5 %; Neutrophils # (A) 5.5 k/uL (1.3-7.7); Neutrophils % (A) 67 %; Platelet Count 274 k/uL (150-450); RBC 4.75 m/uL (3.80-5.40); RDW 12.3 % (11.5-15.5); WBC 8.2 k/uL (3.8-10.6)
[2024-08-22 07:37] LABS: ALT 14 U/L (4-34); AST 24 U/L (14-36); African American GFR (CKD) >90 (>60 ml/min/1.73 sqM); Albumin 4.7 g/dL (3.5-5.0); Alkaline Phosphatase 68 U/L (38-126); Anion Gap 10 mmol/L; Blood Urea Nitrogen 16 mg/dL (7-17); Calcium 9.6 mg/dL (8.4-10.2); Carbon Dioxide 22 mmol/L (22-30); Chloride 108 mmol/L (98-107); Glucose 93 mg/dL (74-99); Non-African American GFR(CKD) >90 (>60 ml/min/1.73 sqM); Potassium 4.1 mmol/L (3.5-5.1); Sodium 140 mmol/L (137-145); Total Protein 7.4 g/dL (6.3-8.2)
[2024-08-22] MEDS: LIDOCAINE 1%-EPI 1:100,000 20 ML VIAL SQ ONE ×2 (07:41→07:59)
--- NOTE | 2024-08-22 08:31 | P.ANPRN ---
Procedure Note - Anesthesia - Nerve Block Performed Bilateral Erector Spinae Single Time Out Performed: Yes ([id number]) Date of Procedure: 08/22/24 Procedure Start Time: : Procedure Stop Time: :11 Location of Patient: PreOp Indication: Acute Post-Operative Pain, Requested by Surgeon Specifically requested for management of pain by : Peggy Dickens Sedation Type: Sedate with meaningful contact maintained Preparation: Sterile Prep Position: Prone Catheter: None Needle Types: Pajunk Needle Gauge: 21 (x2) Ultrasound used to visualize needle placement: Yes Ultrasound used to observe medication spread: Yes Injectate: 0.5% Ropivacaine (see comment for volume) (15cc+10cc nacl pf each side) Blood Aspirated: No Pain Paresthesia on Injection Noted: No Resistance on Injection: Normal Image Stored and Saved: Yes Events: Uneventful and Well Tolerated
[2024-08-22] MEDS: HYDROmorphone 0.5 MG/0.5 ML SYRINGE IVP PRN ×2 (09:25→10:24)
[2024-08-22 09:30] VITALS: TEMP 97.5
[2024-08-22 10:07] VITALS: RESP 16
--- NOTE | 2024-08-22 11:16 | P.OP ---
Date of Procedure: 08/22/24 Description of Procedure: SURGEON: PEGGY DICKENS MD PREOPERATIVE DIAGNOSES: 1. Initial epigastric ventral hernia with incarceration 2. Gastroesophageal reflux disease 3. Postop nausea vomiting 4. Generalized anxiety disorder 5. Chronic back pain POSTOPERATIVE DIAGNOSES: 1. Initial epigastric ventral hernia with incarceration, 3-cm 2. Gastroesophageal reflux disease 3. Postop nausea vomiting 4. Generalized anxiety disorder 5. Chronic back pain OPERATION: 1. Robotic-assisted da Benjamin Xi laparoscopic repair of initial incarcerated epigastric ventral hernia with mesh, ventralight ST mesh 11.4 cm Anesthesia: GETA, regional, local Estimated Blood Loss (ml): 5 Pathology: 1. Incarcerated upper midline ventral hernia defect COMPLICATIONS: None. Operative Findings: 1. Upper midline epigastric ventral hernia subcutaneous defect 3 x 3 cm 2. Fascia defect repaired using #1 V-lock suture INDICATIONS: The patient is a 59-year-old female who presents with a personal history of multiple abdominal wall hernias. Surgical intervention with laparoscopic versus robotic and open techniques were reviewed. Placement of mesh was also reviewed. Benefits and risks were thoroughly described. Informed consent was obtained. DESCRIPTION OF PROCEDURE: The patient was brought into the operating room and laid in supine position. After general induction, the abdomen had been prepped and draped in standard sterile fashion. Ioban draping was also placed. Prior to incision, a timeout protocol was confirmed with surgical team regarding the patient's name including procedures to be performed. The robot was primed prior to the procedure. A field block using local anesthetic was placed along hernia site including the proposed port sites. Initial incision was made with an #11 blade along the left upper quadrant. A 0 degree 5 mm laparoscopic trocar entry was performed and insufflated. Three 8 mm ports were placed along the left lateral abdominal wall under direct localization after exchanging the 12-mm for an 8 mm port. Placements of the ports were 15 cm from the target anatomy and 10 cm apart. The [employer] Xi robot was previously primed, prepped and draped then docked from the right side of the patient onto the left side of the patient. I then sat at the robot Da Benjamin Xi console where working arms of the robot including Bovie cautery connected to robotic scissors, needle special events driver, and graspers placed by the plumber assistant. The peritoneum of the epigastric ventral hernia was opened revealing incarcerated defect of preperitoneal fat. The preperitoneal fat was reduced at the upper midline defect. Upper midline subcutaneous defect 3 x 3 cm, fascial defect of 1 cm. The incarcerated contents were reduced as the peritoneal fat was cleaned from the abdominal wall. Next, hemostasis was checked with cautery. The hernia defects were oversewn using #1 nonabsorbable V-lock suture with fascial imbrication x 2. Next, ventralight ST mesh 11.4 cm was placed with the rough side towards the abdominal wall as to the ventral defect. 2-0 VLOC 12 inch sutures were used to fixate the mesh. A final endoscopic imaging was obtained. All instruments and pneumoperitoneum were evacuated from the abdominal cavity. The da V[employer] Xi robot was undocked from the patient. I re-scrubbed into the case for closure of incisions. The fascia of the 12-mm port was probed and less than 8-mm in size. The incisions were reapproximated using 4-0 Monocryl in an interrupted subcuticular fashion. Liquid glue was applied to the skin after cleansing the skin with normal saline and dilute hydrogen peroxide. An abdominal binder was placed. An umbilical dressing was placed prior. At the end of the procedure, needle, sponge, and instrument count had been verified correct by surgical supervisor. The patient was taken to the postanesthesia care unit in stable condition. Plan - Discharge Summary Discharge Rx Participant: No New Discharge Prescriptions: New Cyclobenzaprine [Flexeril] 10 mg PO TID #30 tab Simethicone [Gas-X] 125 mg PO AC-TID PRN #20 capsule PRN Reason: Pain Ibuprofen [Motrin] 600 mg PO Q8HR PRN #30 tab PRN Reason: Pain Acetaminophen Tab [Tylenol Tab] 1,000 mg PO Q6HR PRN #30 tablet PRN Reason: Pain Continue Ergocalciferol [Vitamin D2 (DRISDOL)] 50,000 units PO RIVAS Gabapentin 300 mg PO DAILY Discharge Medication List Ergocalciferol [Vitamin D2 (DRISDOL)] 50,000 units PO RIVAS 11/18/14 [History] Acetaminophen Tab [Tylenol Tab] 1,000 mg PO Q6HR PRN #30 tablet 08/22/24 [Rx] Cyclobenzaprine [Flexeril] 10 mg PO TID #30 tab 08/22/24 [Rx] Gabapentin 300 mg PO DAILY 08/22/24 [History] Ibuprofen [Motrin] 600 mg PO Q8HR PRN #30 tab 08/22/24 [Rx] Simethicone [Gas-X] 125 mg PO AC-TID PRN #20 capsule 08/22/24 [Rx] Follow up Appointment(s)/Referral(s): Peggy Dickens MD [STAFF PHYSICIAN] - 08/26/24 2:00 pm Patient Instructions/Handouts: Laparoscopic Herniorrhaphy (DC), Ventral Hernia Repair (GEN), Abdominal Binder (DC) Activity/Diet/Wound Care/Special Instructions: No lifting for 4 pounds in 4 weeks< Sep 22 2024 NO LONG DRIVES OR AIRPLANE RIDES OVER 30 MINUTES FOR THE NEXT 2 WEEKS 09/05/24, DUE TO HIGH RISK OF PULMONARY EMBOLISM/DVTs Using antibacterial soap. May shower. No bathtub soaks for 2 weeks, 09/05/24, Wear abdominal binder daily for comfort except for showering. Use ice along incisions for today to prevent swelling. Use Tylenol, simethicone and ibuprofen or Aleve scheduled for the next 24-48 hours for best pain relief. Discharge Disposition: HOME SELF-CARE
[2024-08-22 11:52] VITALS: BP 116/71; PULSE 87
== END 2024-08-22 12:31 | disposition home or self-care (01) ==
LOC: OR 05:40
PROVIDERS: ATTEND Surgery Plastic and Reconstructive Surgery
DX: K43.6 Other and unspecified ventral hernia with obstruction, without gangrene (principal); K21.9 Gastro-esophageal reflux disease without esophagitis; F41.1 Generalized anxiety disorder; K27.9 Peptic ulcer, site unspecified, unspecified as acute or chronic, without hemorrhage or perforation; M54.9 Dorsalgia, unspecified; Z90.49 Acquired absence of other specified parts of digestive tract; Z80.0 Family history of malignant neoplasm of digestive organs; Z91.040 Latex allergy status; Z88.5 Allergy status to narcotic agent; Z79.899 Other long term (current) drug therapy
CPT/HCPCS: 64999; 80053; 85025; 49596; C1781; J2250; J1644; J1100; J0690; J2405; J1171; J3010